=== PATIENT | male | born 1975 | race Caucasian/White ===

== ENCOUNTER 2018-05-29 17:38 | Emergency (ER) | payer MEDICAID ==
[~2018-05-29] VITALS: Ht 175.3 cm; Wt 65.8 kg
[2018-05-29 17:41] VITALS: BP 145/84; Ht 175.3 cm; Wt 65.8 kg
== END 2018-05-29 19:22 | disposition home or self-care (01) ==
LOC: ED 17:38
DX: M25.562 Pain in left knee (principal)

== ENCOUNTER 2020-06-01 23:04 | Emergency (ER) | payer OTHER ==
[~2020-06-01] VITALS: Ht 170.2 cm; Wt 62.6 kg
[2020-06-01 23:15] VITALS: Ht 170.2 cm; Wt 62.6 kg
[2020-06-01 23:40] VITALS: BP 139/86
== END 2020-06-01 23:40 | disposition home or self-care (01) ==
LOC: ED 23:04
DX: L03.113 Cellulitis of right upper limb (principal)